=== PATIENT | male | born 1950 | race Caucasian/White ===

== ENCOUNTER → 2016-09-25 | Outpatient (CLI) | payer MEDICARE, BC ==
[~2016-09-25] MED LIST: ASCO500C16 PO; BENA1TAB18 PO; CYAN25006 SL; FISH1CAP2 PO; PANT40TA PO; VIT1CAPS21 PO
--- NOTE | 2016-09-25 13:03 | DI ---
EXAM: MRI BRAIN W/O CONTRAST LOCATION OF DICTATION: [place] HISTORY: ITS.REASON: G45.8 TIA COMPARISON: No prior studies available for comparison. Mild to moderate age-related cerebral atrophy. Minimal white matter disease. The brain stem, cerebellum, and cerebral hemispheres otherwise have a normal morphologic appearance as well as MR signal intensity on all pulse sequences. There are no areas of restricted diffusion on diffusion weighted imaging to suggest an acute infarct. There is no evidence of an intracranial mass lesion, intracranial hemorrhage, or hydrocephalus. The visualized portions of the orbits, calvarium, paranasal sinuses, and skull base demonstrate no significant abnormality. IMPRESSION: 1. Age appropriate atrophy and minimal white matter disease without evidence for restricted diffusion to suggest acute or recent infarct. .
== END ==
LOC: IMA 11:05
PROVIDERS: ATTEND Family Medicine
DX: G31.9 Degenerative disease of nervous system, unspecified (principal); R90.82 White matter disease, unspecified; G45.8 Other transient cerebral ischemic attacks and related syndromes